=== PATIENT | female | born 1960 | race Caucasian/White ===

== ENCOUNTER 2023-05-22 11:41 | Inpatient (IN) | payer SELFPAY ==
[~2023-05-22] VITALS: Ht 175.2 cm; Wt 65.9 kg
--- NOTE | 2023-05-22 11:56 | ED Respiratory ---
General Chief Complaint: Respiratory Problems Stated Complaint: DIFFICULTY BREATHING Nursing Triage Note: PT TO ED WITH C/O SOB WORSENING SINCE YESTERDAY. STATES NO SHE SOMETIMES USES A FRIENDS INHALER BUT DOES NOT HAVE ANY CHRONIC DX Source: patient Exam Limitations: no limitations History of Present Illness Date Seen by Provider: May 22, 2023 Time Seen by Provider: 11:44 Initial Comments 63-year-old female presents to the emergency department today for shortness of breath. She has had shortness of breath for several years and thinks she may have COPD though she is not seeing anyone for this. Her symptoms have dramatically worse in the last couple of days. No change in her chronic pr oductive cough. No fevers or chills. No chest pain. No abdominal pain or changes in bowel or bladder habits. She does continue to smoke. All other systems reviewed and negative except documented per HPI. Voice recognition software was used to help create this chart Allergies and Home Medications Allergies Coded Allergies: No Known Drug Allergies (Unverified , 05/22/23) Patient Home Medication List Home Medication List Reviewed: Yes Cholecalciferol (Vitamin D3) (Vitamin D3) 50 Mcg (2000 Unit) Capsule, 50 MCG PO DAILY, (Reported) Entered as Reported by: ARIADNA NJ on 05/22/231515 Last Action: Reviewed Diphenhydramine HCl (Benadryl Allergy) 25 Mg Tablet, 12.5 MG PO HS PRN for ALLERGY SYMPTOMS, (Reported) Entered as Reported by: ARIADNA NJ on 05/22/231515 Last Action: Reviewed Multivitamin (Multivitamin) 1 Each Tablet, 1 EACH PO DAILY, (Reported) Entered as Reported by: ARIADNA NJ on 05/22/231515 Last Action: Reviewed Review of Systems Review of Systems Constitutional: see HPI Past Gyohudt-Kyxqwl-Uyiope Hx Patient Social History Tobacco Use?: Yes Tobacco type used: Cigarettes Use of E-Cig and/or Vaping dev: No Substance use?: No Alcohol Use?: No Physical Exam Vital Signs - First Documented 05/22/23 11:50 Temp 36.4 Pulse 91 Resp 30 B/P (MAP) 162/91 (114) Pulse Ox 86 O2 Delivery Room Air Capillary Refill : Less Than 3 Seconds Height: '" Weight: lbs. oz. kg; 21.00 BMI Method: General Appearance: WD/WN, mild distress (Mild respiratory distress) HEENT: normal ENT inspection, TMs normal, pharynx normal Neck: non-tender, supple Respiratory: chest non-tender, other (Mild respiratory distress with use of accessory muscles. Scant expiratory wheezes bilaterally.) Cardiovascular: regular rate, rhythm, no murmur Gastrointestinal: normal bowel sounds, non tender, soft, no organomegaly Extremities: normal range of motion, non-tender, normal inspection, no pedal edema, no calf tenderness, normal capillary refill Neurologic/Psychiatric: alert, oriented x 3 Skin: normal color, warm/dry Progress/Results/Core Measures Suspected Sepsis SIRS Temperature: Pulse: 91 Respiratory Rate: 30 Laboratory Tests 05/22/23 11:57: White Blood Count 10.3 Blood Pressure 162 /91 Mean: 114 Laboratory Tests 05/22/23 11:57: Creatinine 0.56L, Platelet Count 286 Results/Orders Lab Results Laboratory Tests Test 05/22/23 11:57 Range/Units White Blood Count 10.3 4.3-11.0 10^3/uL Red Blood Count 4.58 3.80-5.11 10^6/uL Hemoglobin 16.0 11.5-16.0 g/dL Hematocrit 45 35-52 % Mean Corpuscular Volume 98 80-99 fL Mean Corpuscular Hemoglobin 35 H 25-34 pg Mean Corpuscular Hemoglobin Concent 36 32-36 g/dL Red Cell Distribution Width 11.9 10.0-14.5 % Platelet Count 286 130-400 10^3/uL Mean Platelet Volume 8.5 L 9.0-12.2 fL Immature Granulocyte % (Auto) 0 % Neutrophils (%) (Auto) 74 42-75 % Lymphocytes (%) (Auto) 11 L 12-44 % Monocytes (%) (Auto) 14 H 0-12 % Eosinophils (%) (Auto) 0 0-10 % Basophils (%) (Auto) 0 0-10 % Neutrophils # (Auto) 7.6 1.8-7.8 10^3/uL Lymphocytes # (Auto) 1.1 1.0-4.0 10^3/uL Monocytes # (Auto) 1.5 H 0.0-1.0 10^3/uL Eosinophils # (Auto) 0.0 0.0-0.3 10^3/uL Basophils # (Auto) 0.0 0.0-0.1 10^3/uL Immature Granulocyte # (Auto) 0.0 0.0-0.1 10^3/uL Sodium Level 131 L 135-145 MMOL/L Potassium Level 3.8 3.6-5.0 MMOL/L Chloride Level 96 L 98-107 MMOL/L Carbon Dioxide Level 22 21-32 MMOL/L Anion Gap 13 5-14 MMOL/L Blood Urea Nitrogen 5 L 7-18 MG/DL Creatinine 0.56 L 0.60-1.30 MG/DL Estimat Glomerular Filtration Rate 102 BUN/Creatinine Ratio 9 Glucose Level 108 H 70-105 MG/DL Calcium Level 8.9 8.5-10.1 MG/DL Troponin I < 0.028 <0.028 NG/ML My Orders Orders - PATRICIA ZAMAN DO Basic Metabolic Panel (05/22/23 11:51) Ekg Tracing (05/22/23 11:51) Troponin I [place] (05/22/23 11:51) Chest 1 View, Ap/Pa Only (05/22/23 11:51) Cbc With Automated Diff (05/22/23 11:51) Albuterol/Ipra Inhalation Soln (Duoneb I (05/22/23 12:00) Methylprednisolone Sod Succ (Solu-Medrol (05/22/23 12:00) Svn Small Volume Nebulizer (05/22/23 11:51) Medications Given in ED Vital Signs/I&O 05/22/23 11:50 Temp 36.4 Pulse 91 Resp 30 B/P (MAP) 162/91 (114) Pulse Ox 86 O2 Delivery Room Air Capillary Refill : Less Than 3 Seconds Blood Pressure Mean: 114 ECG Comment Sinus rhythm with a rate of 83 bpm. Normal intervals. Normal axis. No ST or T wave abnormalities. No ectopy. No STEMI. Critical Care Note Critical Care Total Time (minutes) 45 Departure Communication (Admissions) Patient is initially in respiratory distress with increased work of breathing, tachypnea and hypoxia. She is placed on 3.5 L of oxygen via nasal cannula and ultimately her breathing improves. She was given a DuoNeb treatment which did help some as well. She is given IV Solu-Medrol. Chest x-ray is clear for any infiltrate but does have secondary signs of COPD which is currently undiagnosed based on my independent review. I think this is likely a COPD exacerbation. She declines a COVID test here stating "I have had that and this is not what it is." There is no indication for antibiotics at this time. She did remain stable on 3.5 L of oxygen via nasal cannula with oxygen saturation increasing to 90 to 93% and resolution of her tachypnea. She does not typically require oxygen so we will and admitted to the hospital. She has no risk factors or stigmata of DVT, PE. She is admitted to the hospitalist otherwise stable condition. Impression Primary Impression: Dyspnea Qualified Codes: R06.00 - Dyspnea, unspecified Additional Impression: Hypoxia Disposition: ADMITTED INPATIENT Condition: Stable Admissions Decision to Admit Reason: Admit from ER (General) Departure-Patient Inst. Referrals: [facility] (PCP/Family) Primary Care Physician PATRICIA ZAMAN DO May 22, 2023 11:56
[2023-05-22] MEDS ORDERED: RT-ALBUTEROL/IPRATROPIUM 3 ML (DUONEB) VIAL INH ONE (12:00)
[2023-05-22] MEDS ORDERED: methylPREDNISolone 125 MG (Solu-MEDROL) VIAL IVP ONE (12:00)
[2023-05-22 12:07] LABS: BASOPHILS % (AUTO) 0 % (0-10); EOSINOPHILS % (AUTO) 0 % (0-10); HEMATOCRIT 45 % (35-52); LYMPHOCYTES # (AUTO) 1.1 10^3/uL (1.0-4.0); LYMPHOCYTES % (AUTO) 11 % (12-44); MEAN CORPUSCULAR HEMOGLOBIN 35 pg (25-34); MEAN CORPUSCULAR HGB CONC 36 g/dL (32-36); MEAN CORPUSCULAR VOLUME 98 fL (80-99); MEAN PLATELET VOLUME 8.5 fL (9.0-12.2); MONOCYTES # (AUTO) 1.5 10^3/uL (0.0-1.0); MONOCYTES % (AUTO) 14 % (0-12); NEUTROPHILS # (AUTO) 7.6 10^3/uL (1.8-7.8); NEUTROPHILS % (AUTO) 74 % (42-75); PLATELET COUNT 286 10^3/uL (130-400); WHITE BLOOD COUNT 10.3 10^3/uL (4.3-11.0)
[2023-05-22 12:18] LABS: CHLORIDE 96 MMOL/L (98-107); POTASSIUM 3.8 MMOL/L (3.6-5.0); SODIUM 131 MMOL/L (135-145)
[2023-05-22 12:19] LABS: CALCIUM 8.9 MG/DL (8.5-10.1)
[2023-05-22 12:20] LABS: GLUCOSE 108 MG/DL (70-105)
[2023-05-22 12:21] LABS: CARBON DIOXIDE 22 MMOL/L (21-32)
[2023-05-22 12:23] LABS: CREATININE SERUM 0.56 MG/DL (0.60-1.30); GFR ESTIMATED 102
[2023-05-22 12:24] LABS: BUN/CREATININE RATIO 9
--- NOTE | 2023-05-22 12:27 | Diagnostic Imaging Report ---
INDICATION: Dyspnea. Single AP view of the chest is obtained. There is no previous study for comparison. Heart size and pulmonary vascularity are within normal limits. There is mild bilateral air trapping. No pneumothorax or consolidation is identified. There are mildly prominent interstitial markings in the lung bases. IMPRESSION: Probable emphysema and possible mild COPD without other evidence of acute abnormality. Dictated by: Dictated on workstation # [id number]
[2023-05-22] MEDS ORDERED: CATHETER FLUSH 10 ML SYR IVP PRN (14:45)
[2023-05-22] MEDS ORDERED: RT-ALBUTEROL/IPRATROPIUM 3 ML (DUONEB) VIAL IH PRN (14:45)
[2023-05-22 14:58] VITALS: BP 148/68
[2023-05-22] MEDS ORDERED: MULT-1136 PO (15:16)
[2023-05-22] MEDS ORDERED: CHOL20002 PO (15:16)
[2023-05-22] MEDS ORDERED: DIPH25TA65 PO (15:16)
[2023-05-22] MEDS: NICOTINE 21 MG (NICODERM) PATCH TD SCH (15:27)
[2023-05-22 15:41] VITALS: BP 148/68
[2023-05-22 16:42] VITALS: BP 145/70
[2023-05-22] MEDS: RT-ALBUTEROL/IPRATROPIUM 3 ML (DUONEB) VIAL INH SCH ×2 (18:41→22:33)
[2023-05-22 19:49] VITALS: BP 148/82
[2023-05-22] MEDS: CATHETER FLUSH 10 ML SYR IVP SCH (20:02)
[2023-05-22] MEDS ORDERED: guaiFENesin/DM (ROBITUSSIN DM) 10 ML UDC ONE (20:54)
[2023-05-22] MEDS: guaiFENesin/DM (ROBITUSSIN DM) 10 ML UDC PO PRN (20:56)
[2023-05-22 23:13] VITALS: BP 118/55
[2023-05-23] MEDS: RT-ALBUTEROL/IPRATROPIUM 3 ML (DUONEB) VIAL INH SCH ×6 (02:15→22:05)
[2023-05-23] MEDS: guaiFENesin/DM (ROBITUSSIN DM) 10 ML UDC PO PRN ×3 (02:25→20:12)
[2023-05-23 03:01] VITALS: BP 129/76
[2023-05-23] MEDS: CATHETER FLUSH 10 ML SYR IVP SCH ×3 (05:11→20:13)
[2023-05-23] MEDS ORDERED: methylPREDNISolone 40 MG/ML (Solu-MEDROL) VIAL IV SCH (08:15)
[2023-05-23 08:27] VITALS: BP 123/73
[2023-05-23] MEDS: NICOTINE 21 MG (NICODERM) PATCH TD SCH (09:14)
[2023-05-23] MEDS: NICOTINE PATCH REMOVAL TP SCH (09:14)
--- NOTE | 2023-05-23 09:24 | History & Physical-Hospitalist ---
History of Present Illness HPI/Chief Complaint 63-year-old female presents to the emergency department today for shortness of breath. She has had shortness of breath for several years and thinks she may have COPD though she is not seeing anyone for this. Her symptoms have dramatically worse in the last couple of days. No change in her chronic productive cough. No fevers or chills. No chest pain. No abdominal pain or changes in bowel or bladder habits. She does continue to smoke. Upon my arrival patient is feeling less short of breath but still having sig nificant dyspnea with minimal exertion getting the bathroom and back. She reports yesterday and today she had little bit of greenish sputum without blood denies chills or fever and reports that she had been getting little more short of breath over the past several months but acutely got worse she believes around Thursday at that point minimal amount of sputum was clear. She has not had any known exposure that she is aware of anybody who has been sick with respiratory or other symptoms. She has had no previous hospitalizations. There is a strong family history for lung cancer in her mother and sister both who were heavy smokers as well. She has smoked since a young age at least a pack per day likely giving her a minimum of [id number] smoking history. She reports pneumonia as a child only and no past surgeries. Date Seen 05/23/23 Time Seen by a Provider: 07:00 Attending Physician Alexander/[facility] PCP Admitting Physician: Niki Ramirez MD Attending Physician: Niki Ramirez MD Referring Physician Date of Admission May 22, 2023 at 13:58 Home Medications & Allergies Home Medications Reviewed patient Home Medication Reconciliation performed by pharmacy medication reconciliations library media technician and/or nursing. Patients Allergies have been reviewed. Allergies Allergies Coded Allergies No Known Drug Allergies (Unverified05/22/23) Past Ejcmjcl-Pcnfhe-Fdhgzo Hx Patient Social History Tobacco Use?: Yes Tobacco type used: Cigars Smoking Status: Current Everyday Smoker Use of E-Cig and/or Vaping dev: No Substance use?: No Alcohol Use?: Yes Alcohol type: Beer Alcohol Frequency: Couple times a week Pt feels they are or have been: No Current Status status: No status: No Advance Directives: No Advance Directive Location: Home Communicates: Verbally Is interpretation needed?: No Sensory deficits: Vision impairment Implanted or Applied Medical D: None Review of Systems Constitutional: see HPI Physical Exam Physical Exam Vital Signs Vital Signs - First Documented 05/22/23 05/22/23 11:50 14:20 Temp 36.4 Pulse 91 Resp 30 B/P (MAP) 162/91 (114) Pulse Ox 86 O2 Delivery Room Air O2 Flow Rate 3.00 Capillary Refill : Less Than 3 Seconds Height, Weight, BMI Height: '" Weight: lbs. oz. kg; 21.46 BMI Method: General Appearance: Anxious, Mild Distress HEENT: PERRL/EOMI, Pharynx Normal Respiratory: Other (Mild expiratory wheezing noted posteriorly patient sitting upright with pursed lip breathing but no accessory muscle use no wheezes rales or rhonchi noted.) Cardiovascular: Regular Rate, Rhythm, No Edema, No Gallop, No JVD, No Murmur, Normal Peripheral Pulses Gastrointestinal: Normal Bowel Sounds, No Organomegaly, No Pulsatile Mass, Non Tender, Soft Extremity: Normal Capillary Refill, Normal Inspection, Normal Range of Motion, Non Tender, No Calf Tenderness, No Pedal Edema Neurologic/Psychiatric: Alert, Oriented x3 Results Results/Procedures Labs Laboratory Tests 05/22/23 11:57 Patient resulted labs reviewed. Assessment/Plan Admission Diagnosis 1. Acute COPD exacerbation secondary to tobaccoism with chest x-ray findings and physical exam findings suggestive of advanced emphysema. This was discussed with the patient but also recommended formal pulmonary function tests when patient reaches her baseline that would better elucidate the the severity of her COPD. She reports a scant amount of greenish sputum production last day or 2 will obtain sputum culture continue bronchodilator therapy and anti-inflammatory therapy in the form of Solu-Medrol. Admission Status: Inpatient Order (span 2 midnights) Reason for Inpatient Admission: See admission diagnosis NIKI RAMIREZ MD May 23, 2023 09:24
[2023-05-23] MEDS: CEFUROXIME INJECTION 1,500 MG in NS (IVPB) 50 ML IV SCH ×2 (11:27→18:39)
[2023-05-23] MEDS: LORazepam INJ 2 MG/ML (ATIVAN) VIAL IVP PRN ×2 (11:28→18:40)
[2023-05-23 12:26] VITALS: BP 127/74
[2023-05-23] MEDS: IBUPROFEN 600 MG (MOTRIN) TAB PO PRN (14:57)
[2023-05-23 16:06] VITALS: BP 109/64
[2023-05-23] MEDS: methylPREDNISolone 40 MG/ML (Solu-MEDROL) VIAL IV SCH (17:28)
[2023-05-23 19:58] VITALS: BP 124/70
[2023-05-24] VITALS (7 sets, daily range): BP systolic 125–148; BP diastolic 59–89
[2023-05-24] MEDS: guaiFENesin/DM (ROBITUSSIN DM) 10 ML UDC PO PRN ×2 (00:31→22:25)
[2023-05-24] MEDS: LORazepam INJ 2 MG/ML (ATIVAN) VIAL IVP PRN ×3 (00:31→17:45)
[2023-05-24] MEDS: IBUPROFEN 600 MG (MOTRIN) TAB PO PRN ×2 (00:31→14:20)
[2023-05-24] MEDS: methylPREDNISolone 40 MG/ML (Solu-MEDROL) VIAL IV SCH ×3 (00:31→17:34)
[2023-05-24] MEDS: RT-ALBUTEROL/IPRATROPIUM 3 ML (DUONEB) VIAL INH SCH ×6 (02:33→22:42)
[2023-05-24] MEDS: CEFUROXIME INJECTION 1,500 MG in NS (IVPB) 50 ML IV SCH ×3 (03:38→18:45)
[2023-05-24] MEDS: CATHETER FLUSH 10 ML SYR IVP SCH ×3 (03:39→19:59)
[2023-05-24 06:07] LABS: POTASSIUM 4.2 MMOL/L (3.6-5.0)
[2023-05-24 06:08] LABS: CALCIUM 8.6 MG/DL (8.5-10.1)
[2023-05-24 06:12] LABS: CREATININE SERUM 0.56 MG/DL (0.60-1.30)
[2023-05-24] MEDS: BENZONATATE 100 MG (TESSALON) CAPSULE PO SCH ×2 (10:08→17:35)
[2023-05-24] MEDS: NICOTINE 21 MG (NICODERM) PATCH TD SCH (10:08)
[2023-05-24] MEDS: NICOTINE PATCH REMOVAL TP SCH (10:08)
--- NOTE | 2023-05-24 12:41 | Progress Note - Hospitalist ---
Subjective HPI/CC On Admission Date Seen by Provider: May 24, 2023 Time Seen by Provider: 11:00 63-year-old female presents to the emergency department today for shortness of breath. She has had shortness of breath for several years and thinks she may have COPD though she is not seeing anyone for this. Her symptoms have dramatica lly worse in the last couple of days. No change in her chronic productive cough. No fevers or chills. No chest pain. No abdominal pain or changes in bowel or bladder habits. She does continue to smoke. Upon my arrival patient is feeling less short of breath but still having significant dyspnea with minimal exertion getting the bathroom and back. She reports yesterday and today she had little bit of greenish sputum without blood denies chills or fever and reports that she had been getting little more short of breath over the past several months but acutely got worse she believes around Thursday at that point minimal amount of sputum was clear. She has not had any known exposure that she is aware of anybody who has been sick with respiratory or other symptoms. She has had no previous hospitalizations. There is a strong family history for lung cancer in her mother and sister both who were heavy smokers as well. She has smoked since a young age at least a pack per day likely giving her a minimum of [id number] smoking history. She reports pneumonia as a child only and no past surgeries. Subjective/Events-last exam Patient feeling about the same intermittent dyspnea at rest and dyspnea with exertion. She denies chills or fever coughing up increasing amount of reportedly greenish sputum without blood. She denies chills fever or rigors. Objective Exam Vital Signs Vital Signs Date Time Temp Pulse Resp B/P (MAP) Pulse Ox O2 Delivery O2 Flow Rate FiO2 05/24/23 10:16 92 High Flow N/C 8.00 05/24/23 08:00 36.7 96 21 133/74 (93) Capillary Refill : Less Than 3 Seconds General Appearance: Anxious Respiratory: Chest Non Tender, No Accessory Muscle Use, No Respiratory Distress, Other (Coarse breath sounds throughout mild expiratory wheezing with cough only) Cardiovascular: Regular Rate, Rhythm, No Edema, No Gallop, No JVD, No Murmur Results/Procedures Lab Laboratory Tests 05/24/23 05:35 Patient resulted labs reviewed. Assessment/Plan Assessment and Plan Assess & Plan/Chief Complaint 1. Acute COPD exacerbation secondary to tobaccoism with chest x-ray findings and physical exam findings suggestive of advanced emphysema. This was discussed with the patient but also recommended formal pulmonary function tests when patient reaches her baseline that would better elucidate the the severity of her COPD. She reports a scant amount of greenish sputum production last day or 2 will obtain sputum culture continue bronchodilator therapy and anti-inflammatory therapy in the form of Solu-Medrol.Sputum culture is growing what appears to be strep pneumonia continue IV Ceftin bronchodilator and anti-inflammatory therapy. NIKI RAMIREZ MD May 24, 2023 12:41
[2023-05-25] MEDS: methylPREDNISolone 40 MG/ML (Solu-MEDROL) VIAL IV SCH ×2 (00:37→08:08)
[2023-05-25] MEDS: BENZONATATE 100 MG (TESSALON) CAPSULE PO SCH ×3 (00:37→18:11)
[2023-05-25] MEDS: LORazepam INJ 2 MG/ML (ATIVAN) VIAL IVP PRN ×3 (00:42→19:29)
[2023-05-25] MEDS: RT-ALBUTEROL/IPRATROPIUM 3 ML (DUONEB) VIAL INH SCH ×6 (02:49→22:11)
[2023-05-25] MEDS: CEFUROXIME INJECTION 1,500 MG in NS (IVPB) 50 ML IV SCH ×3 (03:27→18:11)
[2023-05-25] MEDS: CATHETER FLUSH 10 ML SYR IVP SCH ×3 (03:27→19:29)
[2023-05-25] MEDS: guaiFENesin/DM (ROBITUSSIN DM) 10 ML UDC PO PRN ×3 (08:09→20:37)
[2023-05-25 08:20] VITALS: BP 138/81
[2023-05-25] MEDS: IBUPROFEN 600 MG (MOTRIN) TAB PO PRN (09:12)
[2023-05-25] MEDS: NICOTINE PATCH REMOVAL TP SCH (09:13)
[2023-05-25] MEDS: NICOTINE 21 MG (NICODERM) PATCH TD SCH (09:13)
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
[2023-05-25 15:44] VITALS: BP 143/71
[2023-05-25 19:44] VITALS: BP 133/57
[2023-05-25] MEDS ORDERED: ADVAIR HFA 115/21 MCG INHALER 8 GM IH SCH (21:00)
[2023-05-25] MEDS: ENOXAPARIN 40 MG/0.4 ML (LOVENOX) SYR SQ SCH (22:20)
[2023-05-25 23:47] VITALS: BP 126/78
[2023-05-26] MEDS: LORazepam INJ 2 MG/ML (ATIVAN) VIAL IVP PRN ×2 (01:45→21:06)
[2023-05-26] MEDS: BENZONATATE 100 MG (TESSALON) CAPSULE PO SCH ×3 (01:45→17:18)
[2023-05-26] MEDS: CATHETER FLUSH 10 ML SYR IVP SCH ×3 (01:45→21:27)
[2023-05-26] MEDS: CEFUROXIME INJECTION 1,500 MG in NS (IVPB) 50 ML IV SCH ×3 (01:46→18:01)
[2023-05-26] MEDS: RT-ALBUTEROL/IPRATROPIUM 3 ML (DUONEB) VIAL INH SCH ×6 (03:07→22:06)
[2023-05-26] MEDS: predniSONE 20 MG TAB PO SCH (05:29)
[2023-05-26 05:51] LABS: HEMATOCRIT 39 % (35-52); HEMOGLOBIN 13.6 g/dL (11.5-16.0); MEAN CORPUSCULAR HEMOGLOBIN 35 pg (25-34); MEAN CORPUSCULAR HGB CONC 35 g/dL (32-36); MEAN CORPUSCULAR VOLUME 101 fL (80-99); MEAN PLATELET VOLUME 8.8 fL (9.0-12.2); PLATELET COUNT 307 10^3/uL (130-400); WHITE BLOOD COUNT 13.1 10^3/uL (4.3-11.0)
[2023-05-26 06:01] LABS: POTASSIUM 3.8 MMOL/L (3.6-5.0)
[2023-05-26 06:07] LABS: CREATININE SERUM 0.55 MG/DL (0.60-1.30)
[2023-05-26 07:40] VITALS: BP 161/83
[2023-05-26 07:58] VITALS: BP 140/70
--- NOTE | 2023-05-26 08:53 | Progress Note ---
Subjective Subjective/Events-last exam Woke up feeling really bad today, so tried to eat a little breakfast. Describes feeling draggy. States OJ helped some. No specific complaints. Isn't sure how breathing feels today. Says she went to the restroom several times and was able to make it. Objective Exam Last Set of Vital Signs Vital Signs Date Time Temp Pulse Resp B/P (MAP) Pulse Ox O2 Delivery O2 Flow Rate FiO2 05/26/23 07:58 36.6 79 20 140/70 (93) 92 High Flow N/C 5.00 Capillary Refill : Less Than 3 Seconds I&O Intake and Output 05/26/23 00:00 Intake Total 1690 ml Balance 1690 ml Intake Oral 1640 ml IV Total 50 ml # Voids 6 # Bowel Movements 1 General: Alert, No Acute Distress Lungs: Other (expiratory wheeze throughout but improved air movement compared to yesterday) Neuro: Normal Speech Psych/Mental Status: Mood NL Results/Procedures Lab Laboratory Tests 05/26/23 05:20: White Blood Count 13.1H, Red Blood Count 3.86, Hemoglobin 13.6, Hematocrit 39, Mean Corpuscular Volume 101H, Mean Corpuscular Hemoglobin 35H, Mean Corpuscular Hemoglobin Concent 35, Red Cell Distribution Width 11.8, Platelet Count 307, Mean Platelet Volume 8.8L, Sodium Level 131L, Potassium Level 3.8, Chloride Level 96L, Carbon Dioxide Level 29, Anion Gap 6, Blood Urea Nitrogen 18, Creatinine 0.55L, Estimat Glomerular Filtration Rate 102, BUN/Creatinine Ratio 33, Glucose Level 79, Calcium Level 8.0L Microbiology 05/23/23 Gram Stain - Final, Resulted 05/23/23 Sputum Culture - Preliminary, Resulted Probable Strep Pneumoniae Assessment/Plan Assessment/Plan (1) COPD exacerbation Status: Acute Assessment & Plan: Suspected COPD exacerbation, will need formal testing after exacerbation. Change to oral prednisone, continue albuterol/ipratropium, add fluticasone/vilanterol. Wean supplemental oxygen as tolerated. (2) DVT prophylaxis Status: Acute Assessment & Plan: Enoxaparin SILVIA DICKINSON MD May 26, 2023 08:53
[2023-05-26] MEDS: NICOTINE PATCH REMOVAL TP SCH (09:50)
[2023-05-26] MEDS: NICOTINE 21 MG (NICODERM) PATCH TD SCH (09:50)
[2023-05-26] MEDS: FLUTICASONE/VILANTEROL 100 MCG 14'S (BREO) IH SCH (10:18)
[2023-05-26 16:00] VITALS: BP 132/81
[2023-05-26 16:08] VITALS: BP 140/70
[2023-05-26] MEDS: guaiFENesin/DM (ROBITUSSIN DM) 10 ML UDC PO PRN ×2 (17:18→22:33)
[2023-05-26] MEDS: IBUPROFEN 600 MG (MOTRIN) TAB PO PRN (18:24)
[2023-05-26] MEDS: ENOXAPARIN 40 MG/0.4 ML (LOVENOX) SYR SQ SCH (21:07)
[2023-05-26 23:27] VITALS: BP 131/83
[2023-05-27] MEDS: RT-ALBUTEROL/IPRATROPIUM 3 ML (DUONEB) VIAL INH SCH ×4 (02:10→14:24)
[2023-05-27] MEDS: BENZONATATE 100 MG (TESSALON) CAPSULE PO SCH ×2 (02:19→08:53)
[2023-05-27] MEDS: CEFUROXIME INJECTION 1,500 MG in NS (IVPB) 50 ML IV SCH ×2 (02:20→10:03)
[2023-05-27 05:37] LABS: POTASSIUM 3.4 MMOL/L (3.6-5.0)
[2023-05-27 05:38] LABS: CALCIUM 7.8 MG/DL (8.5-10.1)
[2023-05-27 05:43] LABS: CREATININE SERUM 0.51 MG/DL (0.60-1.30)
[2023-05-27] MEDS: predniSONE 20 MG TAB PO SCH (06:08)
[2023-05-27] MEDS: CATHETER FLUSH 10 ML SYR IVP SCH ×2 (06:08→13:42)
[2023-05-27] MEDS: FLUTICASONE/VILANTEROL 100 MCG 14'S (BREO) IH SCH (06:37)
[2023-05-27 08:19] VITALS: BP 135/78
[2023-05-27] MEDS: IBUPROFEN 600 MG (MOTRIN) TAB PO PRN ×2 (08:53→15:04)
[2023-05-27] MEDS: LORazepam INJ 2 MG/ML (ATIVAN) VIAL IVP PRN ×2 (08:53→15:04)
[2023-05-27] MEDS: guaiFENesin/DM (ROBITUSSIN DM) 10 ML UDC PO PRN ×2 (08:53→15:04)
[2023-05-27] MEDS: NICOTINE PATCH REMOVAL TP SCH (09:00)
[2023-05-27] MEDS: NICOTINE 21 MG (NICODERM) PATCH TD SCH (09:00)
[2023-05-27] MEDS ORDERED: PRD20T PO (15:10)
[2023-05-27] MEDS ORDERED: CEFD300C3 PO (15:10)
[2023-05-27] MEDS ORDERED: LORA-404 PO (15:12)
[2023-05-27 15:24] VITALS: BP 122/59
[2023-05-27] MEDS ORDERED: ALBU8.5H6 INH (15:55)
[2023-05-27] MEDS ORDERED: FLUT1DIS26 IH (15:55)
[2023-05-27] MEDS ORDERED: TIOT18CA2 IH (15:55)
--- NOTE | 2023-05-27 15:56 | Discharge Summary ---
Discharge Summary Hospital Course Problems/Diagnosis: (1) COPD exacerbation Status: Acute Assessment & Plan: Suspected COPD exacerbation, will need formal testing after exacerbation. Discharged with prednisone, Advair and Spiriva and Proair as well as with home supplemental oxygen at 3 lpm. Pt requesting anxiety meds, reported using neighbor's xanax and that ativan inpatient not as helpful, declined hydroxyzine as she states it didn't work for her. Discussed risk of buttermaker benzodiazepine use and sent script for a few Ativan, will need to follow up with primary for buttermaker plan. Hospital Course Date of Admission: May 22, 2023 at 13:58 Admission Diagnosis : Family Physician/Provider: Carrier/[facility] Date of Discharge: 05/27/23 Discharge Diagnosis: See problem list Hospital Course: See problem list Labs and Pending Lab Test: Laboratory Tests 05/27/23 05:20: Sodium Level 132L, Potassium Level 3.4L, Chloride Level 95L, Carbon Dioxide Level 29, Anion Gap 8, Blood Urea Nitrogen 15, Creatinine 0.51L, Estimat Glomerular Filtration Rate 104, BUN/Creatinine Ratio 29, Glucose Level 84, Calcium Level 7.8L Microbiology 05/23/23 Gram Stain - Final, Complete 05/23/23 Sputum Culture - Final, Complete Streptococcus pneumoniae Usual upper respiratory param Home Meds Active Ventolin Hfa (Albuterol Sulfate) 90 Mcg Hfa.aer.ad 2 Puff INH Q4H PRN 1 PUFF = 90 MCG Spiriva (Tiotropium [place]) 18 Mcg Aerp 2 Inh IH DAILY Advair 250-50 Diskus (Fluticasone/Salmeterol) 250 Mcg-50 Mcg/Dose Blst.w.dev 1 Each IH Q12H Ativan (Lorazepam) 0.5 Mg Tablet 0.5 Mg PO TID PRN 7 Days Cefdinir 300 Mg Capsule 300 Mg PO BID Prednisone 20 Mg Tab 40 Mg PO DAILY@0700 3 Days Reported Vitamin D3 (Cholecalciferol (Vitamin D3)) 50 Mcg (2000 Unit) Capsule 50 Mcg PO DAILY Multivitamin 1 Each Tablet 1 Each PO DAILY Benadryl Allergy (Diphenhydramine HCl) 25 Mg Tablet 12.5 Mg PO HS PRN Assessment/Pt DC Instructions Follow up at [facility] within a week of discharge. Discharge Diet: No Restrictions Activity as Tolerated: Yes Discharge Physical Examination Allergies: Coded Allergies: No Known Drug Allergies (Unverified , 05/22/23) General Appearance: No Apparent Distress Respiratory: Lungs Clear, No Accessory Muscle Use Cardiovascular: Regular Rate, Rhythm Gastrointestinal: Normal Bowel Sounds, Non Tender, Soft Skin: Normal Color, Warm/Dry Neurologic/Psychiatric: Alert, Normal Mood/Affect SILVIA DICKINSON MD May 27, 2023 15:56
== END 2023-05-27 16:55 | disposition home or self-care (01) | DRG 192 ==
LOC: ER 11:45 → 4TH 13:58 → OBSVTOIN 13:58
PROVIDERS: ADMIT Internal Medicine; ATTEND Family Medicine
DX: J43.8 Other emphysema (principal); F17.210 Nicotine dependence, cigarettes, uncomplicated; B95.3 Streptococcus pneumoniae as the cause of diseases classified elsewhere; H54.7 Unspecified visual loss; Z79.899 Other long term (current) drug therapy
CPT/HCPCS: 36415; 71045; 80048; 84484; 85025; 85027; 87070; 87077; 87184; 87205; 93005; 94640; 94760; 94761; 96374; G0378

== ENCOUNTER → 2023-07-07 | Outpatient (CLI) | payer SELFPAY ==
[~2023-07-07] MED LIST: ALBU8.5H6 INH; CEFD300C3 PO; CHOL20002 PO; DIPH25TA65 PO; FLUT1DIS26 IH; LORA-404 PO; MULT-1136 PO; PRD20T PO; RT-ALBUTEROL SULF 2.5 MG/3 ML PRE-MIX VIAL INH ONE; TIOT18CA2 IH
== END ==
LOC: RT 13:00
PROVIDERS: ATTEND Nurse Practitioner Family
DX: J43.2 Centrilobular emphysema (principal)
CPT/HCPCS: 94060; 94726; 94729